=== PATIENT | male | born 1975 | race Caucasian/White ===

== ENCOUNTER 2021-06-01 22:55 | Emergency (ER) | payer MEDICAID ==
[~2021-06-01] VITALS: Ht 182.9 cm; Wt 75.0 kg
[2021-06-01 23:05] VITALS: BP 143/98
--- NOTE | 2021-06-02 03:22 | NUR ---
Left message for patient mom, Jennifer, [phone]. Pt needs a ride home.
[2021-06-02] MEDS ORDERED: ibuprofen tablet 400 MG TABLET PO ONE ×2 (03:50→04:30)
[2021-06-02] MEDS ORDERED: oxyCODONE/APAP 5-325mg tablet PO ONE (03:50)
== END 2021-06-02 07:30 | disposition home or self-care (01) ==
LOC: ER 22:56
DX: S62.647A Nondisplaced fracture of proximal phalanx of left little finger, initial encounter for closed fracture (principal); S60.511A Abrasion of right hand, initial encounter; M54.89 Other dorsalgia; F17.200 Nicotine dependence, unspecified, uncomplicated; Z72.89 Other problems related to lifestyle; Y08.89XA Assault by other specified means, initial encounter; Y93.89 Activity, other specified; Y92.89 Other specified places as the place of occurrence of the external cause; Y99.8 Other external cause status
CPT/HCPCS: 29125; 70450; 73130; 93005; 99284

== ENCOUNTER 2021-08-18 16:26 | Emergency (ER) | payer MEDICAID ==
[~2021-08-18] VITALS: Ht 185.4 cm; Wt 75.0 kg
[2021-08-18] MEDS ORDERED: metoclopramide 5 mg/ml inj IV ONE (17:35)
[2021-08-18] MEDS ORDERED: normal saline 1000ml 1,000 ML IV ONE (17:35)
[2021-08-18 17:50] LABS: CLARITY,URINE CLEAR (Clear); GLUCOSE, URINE NEGATIVE (Neg); KETONES,URINE NEGATIVE (Neg); LEUKOCYTE ESTERASE ,URINE NEGATIVE (Neg); NITRITES, URINE NEGATIVE (Neg); OCCULT BLOOD,URINE NEGATIVE (Neg); PH,URINE 6.5 (4.8-8.0); PROTEIN,URINE NEGATIVE (Neg); UROBILINOGEN,URINE 0.2 E.U/dL (0.2-1.0)
[2021-08-18 17:52] LABS: COLOR,URINE STRAW (Yellow); UA COLLECTION TYPE CLN CATCH MIDSTREAM
[2021-08-18 17:58] LABS: BASOPHILS # (AUTO) 0.1 X10'3 (0-0.2); BASOPHILS % (AUTO) 0.6 % (0-1); EOSINOPHILS % (AUTO) 0.4 % (0-6); HEMATOCRIT 38.2 % (42.0-52.0); HEMOGLOBIN 13.1 g/dl (14.0-17.9); LYMPHOCYTES # (AUTO) 2.3 X10'3 (1.1-4.8); LYMPHOCYTES % (AUTO) 19.3 % (21-51); MEAN CORPUSCULAR HEMOGLOBIN 35.9 PG (27.0-31.0); MEAN CORPUSCULAR HGB CONC 34.3 g/dL (33.0-36.5); MEAN CORPUSCULAR VOLUME 104.9 FL (78-98); MEAN PLATELET VOLUME 6.9 FL (7.4-10.4); MONOCYTES % (AUTO) 8.1 % (2-12); NEUTROPHILS # (AUTO) 8.4 X10'3 (1.8-7.7); NEUTROPHILS % (AUTO) 71.6 % (42-75); PLATELET COUNT 247 X10'3 (140-440); RED BLOOD COUNT 3.64 X10'6 (4.70-6.10); RED CELL DISTRIBUTION WIDTH 14.6 % (11.5-14.5); WHITE BLOOD COUNT 11.8 X10'3 (4.5-11.0)
[2021-08-18 18:03] LABS: URINE AMPHETAMINE SCREEN NEGATIVE (Neg); URINE BARBITUATE SCREEN NEGATIVE (Neg); URINE BENZODIAZEPINES SCREEN NEGATIVE (Neg); URINE CANNABINOID SCREEN POSITIVE (Neg); URINE COCAINE SCREEN NEGATIVE (Neg); URINE METHADONE SCREEN NEGATIVE (Neg); URINE OPIATE SCREEN NEGATIVE (Neg); URINE PHENCYCLIDINE SCREEN NEGATIVE (Neg)
[2021-08-18 18:12] LABS: ALANINE AMINOTRANSFERASE 35 U/L (12-78); ALBUMIN 3.7 G/DL (3.4-5.0); ALBUMIN/GLOBULIN RATIO 0.8 (1.1-1.5); ALKALINE PHOSPHATASE 105 IU/L (46-116); ANION GAP 14 (8-16); ASPARTATE AMINO TRANSFERASE 101 U/L (10-37); BILIRUBIN,TOTAL 0.3 MG/DL (0.1-1.0); BLOOD UREA NITROGEN 8 MG/DL (7-18); BUN/CREATININE RATIO 11.4 (5.4-32.0); CALCIUM 8.8 MG/DL (8.5-10.1); CHLORIDE 102 MMOL/L (99-107); GLUCOSE 85 MG/DL (70-104); POTASSIUM 3.7 MMOL/L (3.5-5.1); SODIUM 140 MMOL/L (135-145); TOTAL CARBON DIOXIDE 24.2 MMOL/L (24-32); TOTAL PROTEIN 8.4 G/DL (6.4-8.2); eGFR > 90 ML/MIN
[2021-08-18 18:26] VITALS: BP 110/78
== END 2021-08-18 18:40 | disposition home or self-care (01) ==
LOC: ER 16:27
DX: S02.609A Fracture of mandible, unspecified, initial encounter for closed fracture (principal); S00.81XA Abrasion of other part of head, initial encounter; F17.200 Nicotine dependence, unspecified, uncomplicated; Z72.89 Other problems related to lifestyle; Z59.00 Homelessness unspecified; Y04.8XXA Assault by other bodily force, initial encounter; Y93.89 Activity, other specified; Y92.481 Parking lot as the place of occurrence of the external cause; Y99.8 Other external cause status
CPT/HCPCS: 36415; 70450; 70486; 72125; 80053; 80305; 81003; 83735; 84484; 85025; 96361; 96374; 99284; J2765; J7030

== ENCOUNTER 2022-04-25 13:47 | Emergency (ER) | payer MEDICAID ==
[~2022-04-25] VITALS: Ht 182.9 cm; Wt 79.5 kg
[2022-04-25] MEDS ORDERED: LORazepam 2 mg/ml vial IV ONE (14:25)
[2022-04-25 14:44] LABS: BASOPHILS # (AUTO) 0.1 X10'3 (0-0.2); BASOPHILS % (AUTO) 0.9 % (0-1); EOSINOPHILS # (AUTO) 0.2 X10'3 (0-0.9); EOSINOPHILS % (AUTO) 1.6 % (0-6); HEMATOCRIT 37.8 % (42.0-52.0); HEMOGLOBIN 12.6 g/dl (14.0-17.9); LYMPHOCYTES # (AUTO) 1.8 X10'3 (1.1-4.8); LYMPHOCYTES % (AUTO) 16.4 % (21-51); MEAN CORPUSCULAR HEMOGLOBIN 33.6 PG (27.0-31.0); MEAN CORPUSCULAR HGB CONC 33.2 g/dL (33.0-36.5); MEAN CORPUSCULAR VOLUME 101.2 FL (78-98); MEAN PLATELET VOLUME 6.6 FL (7.4-10.4); MONOCYTES # (AUTO) 1.2 X10'3 (0-0.9); NEUTROPHILS # (AUTO) 7.9 X10'3 (1.8-7.7); NEUTROPHILS % (AUTO) 70.1 % (42-75); PLATELET COUNT 327 X10'3 (140-440); RED BLOOD COUNT 3.74 X10'6 (4.70-6.10); RED CELL DISTRIBUTION WIDTH 14.1 % (11.5-14.5); WHITE BLOOD COUNT 11.3 X10'3 (4.5-11.0)
[2022-04-25 15:00] LABS: ALANINE AMINOTRANSFERASE 17 U/L (12-78); ALBUMIN 3.4 G/DL (3.4-5.0); ALBUMIN/GLOBULIN RATIO 0.9 (1.1-1.5); ALKALINE PHOSPHATASE 79 IU/L (46-116); ANION GAP 15 (8-16); ASPARTATE AMINO TRANSFERASE 27 U/L (10-37); BILIRUBIN,TOTAL 0.4 MG/DL (0.1-1.0); BLOOD UREA NITROGEN 17 MG/DL (7-18); BUN/CREATININE RATIO 19.8 (5.4-32.0); CALCIUM 8.5 MG/DL (8.5-10.1); CHLORIDE 102 MMOL/L (99-107); CREATININE 0.86 MG/DL (0.60-1.10); GLUCOSE 69 MG/DL (70-104); POTASSIUM 3.1 MMOL/L (3.5-5.1); SODIUM 136 MMOL/L (135-145); TOTAL CARBON DIOXIDE 18.9 MMOL/L (24-32); eGFR > 90 ML/MIN
[2022-04-25] MEDS ORDERED: normal saline 1000ml 1,000 ML IV ONE ×2 (15:10→15:15)
[2022-04-25 17:50] VITALS: BP 124/90
== END 2022-04-25 17:59 | disposition home or self-care (01) ==
LOC: ER 13:48
DX: R07.89 Other chest pain (principal); E86.0 Dehydration; F15.90 Other stimulant use, unspecified, uncomplicated; Z72.89 Other problems related to lifestyle; Z59.00 Homelessness unspecified
CPT/HCPCS: 36415; 71045; 80053; 83605; 83880; 84484; 85025; 93005; 96361; 96374; 99285; J2060; J7030

== ENCOUNTER 2022-08-24 22:41 | Emergency (ER) | payer MEDICAID ==
[~2022-08-24] VITALS: Ht 185.4 cm; Wt 70.5 kg
[2022-08-24] MEDS ORDERED: normal saline 1000ml 1,000 ML IV ONE (22:55)
[2022-08-24] MEDS ORDERED: nitroGLYCERIN 0.4mg/hour patch TD ONE (22:55)
[2022-08-24] MEDS ORDERED: iohexol 350MG/ML 100ml bottle IV ONE (23:26)
[2022-08-24 23:36] LABS: BASOPHILS # (AUTO) 0.1 X10'3 (0-0.2); BASOPHILS % (AUTO) 1.1 % (0-1); EOSINOPHILS # (AUTO) 0.2 X10'3 (0-0.9); EOSINOPHILS % (AUTO) 2.5 % (0-6); HEMATOCRIT 35.5 % (42.0-52.0); HEMOGLOBIN 12.1 g/dl (14.0-17.9); LYMPHOCYTES # (AUTO) 2.8 X10'3 (1.1-4.8); LYMPHOCYTES % (AUTO) 32.9 % (21-51); MEAN CORPUSCULAR HEMOGLOBIN 34.5 PG (27.0-31.0); MEAN CORPUSCULAR VOLUME 101.3 FL (78-98); MEAN PLATELET VOLUME 6.2 FL (7.4-10.4); MONOCYTES # (AUTO) 0.9 X10'3 (0-0.9); NEUTROPHILS # (AUTO) 4.5 X10'3 (1.8-7.7); NEUTROPHILS % (AUTO) 52.5 % (42-75); PLATELET COUNT 319 X10'3 (140-440); RED CELL DISTRIBUTION WIDTH 15.2 % (11.5-14.5); WHITE BLOOD COUNT 8.6 X10'3 (4.5-11.0)
[2022-08-25 00:01] LABS: ALANINE AMINOTRANSFERASE 19 U/L (12-78); ALBUMIN 3.6 G/DL (3.4-5.0); ALBUMIN/GLOBULIN RATIO 0.9 (1.1-1.5); ALKALINE PHOSPHATASE 96 IU/L (46-116); ANION GAP 6 (8-16); ASPARTATE AMINO TRANSFERASE 27 U/L (10-37); BILIRUBIN,TOTAL 0.2 MG/DL (0.1-1.0); BLOOD UREA NITROGEN 12 MG/DL (7-18); BUN/CREATININE RATIO 15.2 (5.4-32.0); CALCIUM 8.4 MG/DL (8.5-10.1); CHLORIDE 105 MMOL/L (99-107); CREATININE 0.79 MG/DL (0.60-1.10); GLUCOSE 93 MG/DL (70-104); POTASSIUM 4.1 MMOL/L (3.5-5.1); SODIUM 141 MMOL/L (135-145); TOTAL CARBON DIOXIDE 30.3 MMOL/L (24-32); TOTAL PROTEIN 7.4 G/DL (6.4-8.2); eGFR > 90 ML/MIN
[2022-08-25] MEDS ORDERED: ketorolac trometh. 30mg/ml inj. IV ONE (00:20)
[2022-08-25] MEDS ORDERED: acetaminophen 325mg tablet PO ONE (00:20)
[2022-08-25 01:59] LABS: ABG BASE EXCESS 0.8 mmol/L (-2.0-2.0); ABG HCO3 24.1 mmol/L (22.0-26.0); ABG OXYGEN SATURATION 95.7 % (94-97); ABG PCO2 (T) 34.2 mmHg (35.0-48.0); ABG PO2 (T) 81.8 mmHg (75.0-100.0); ALLEN'S TEST POSITIVE; FCOHb 4.2 % (0.0-3.9); FMetHb 0.1 % (0.0-1.5); FO2Hb 91.6 % (94-97); TOTAL HEMOGLOBIN 12.2 G/dl (14.0-17.9)
[2022-08-25] MEDS ORDERED: folic acid/vitamin B complex w/vitamin C 0.8mg tablet PO ONE (02:45)
[2022-08-25] MEDS ORDERED: ACET650T58 PO (02:53)
[2022-08-25] MEDS ORDERED: MULT400T7 PO (02:53)
[2022-08-25 03:51] VITALS: BP 126/81
== END 2022-08-25 03:54 | disposition home or self-care (01) ==
LOC: ER 22:41
DX: D64.9 Anemia, unspecified (principal); R07.9 Chest pain, unspecified; F15.10 Other stimulant abuse, uncomplicated; Z87.81 Personal history of (healed) traumatic fracture
CPT/HCPCS: 36415; 36600; 70450; 71045; 71275; 72125; 80053; 82803; 83735; 83880; 84484; 85018; 85025; 85610; 93005; 96361; 96374; 99285; J1885; J7030; Q9967

== ENCOUNTER 2024-02-13 16:58 | Emergency (ER) | payer MEDICAID ==
[~2024-02-13] VITALS: Ht 175.3 cm; Wt 72.0 kg
[~2024-02-13 16:58] MED LIST: MULT400T7 PO
[2024-02-13 17:34] VITALS: BP 119/76; PULSE 89; TEMP 98; O2SAT 99
[2024-02-13] MEDS ORDERED: normal saline 1000ML IV soln IVB ONE (17:50)
[2024-02-13 18:14] VITALS: RESP 16
== END 2024-02-13 18:19 | disposition home or self-care (01) ==
LOC: ER 16:58
DX: T67.5XXA Heat exhaustion, unspecified, initial encounter (principal); S90.822A Blister (nonthermal), left foot, initial encounter; S90.821A Blister (nonthermal), right foot, initial encounter; M79.671 Pain in right foot; M79.672 Pain in left foot; Z79.899 Other long term (current) drug therapy; X58.XXXA Exposure to other specified factors, initial encounter; Y93.89 Activity, other specified; Y92.89 Other specified places as the place of occurrence of the external cause; Y99.8 Other external cause status
CPT/HCPCS: 99283; J7030